=== PATIENT | female | born 1960 | race Caucasian/White ===

== ENCOUNTER → 2018-01-17 18:32 | Outpatient (CLI) | payer OTHER, SELFPAY ==
[2018-01-31 12:14] LABS: HPV APTIMA, High Risk Negative (Negative)
== END ==
PROVIDERS: Visit Provider Obstetrics & Gynecology
DX: Z12.4 Encounter for screening for malignant neoplasm of cervix (principal)
CPT/HCPCS: 88175; G0145

== ENCOUNTER → 2018-02-11 15:45 | Outpatient (CLI) | payer OTHER, SELFPAY ==
--- NOTE | 2018-02-11 15:47 | BI_ITS ---
MAMMOGRAPHY - BILATERAL SCREENING REASON FOR EXAM: Female, 57 years old. Routine annual screening examination. PERTINENT HISTORY: Non-contributory. TECHNIQUE: Digital bilateral breast victoriano (3D mammographic acquisition) in the CC and MLO projections. 2-D mediolateral oblique (MLO) and craniocaudad (CC) views of both breasts were obtained. CAD: Full Field Digital Mammography with Computer Added Detection was performed. COMPARISON: Comparison is made with prior ocular examination dated December 22, 2016. FINDINGS: Breast Composition: The breasts are extremely dense, which lowers the sensitivity of mammography. There are no dominant masses or suspicious calcifications. Stable appearance of the bilateral axillary lymph nodes. No other significant abnormalities are identified. There has been no significant change since the prior study. BI/SCREENING MAMM (CAD), BILAT IMPRESSION: Stable bilateral screening mammogram. Yearly follow-up mammogram recommended. (A) ASSESSMENT CATEGORY: BIRADS Category 2: Benign. A letter regarding these results will be sent to the patient by the facility within 30 days. Approximately 10% of breast cancers are not detected by mammography. A normal mammogram should not delay biopsy of a clinically suspicious abnormality. [id number] Electronically Signed: Sunny Farfan MD at 8:16 EDT Tel [phone], Service support ,
== END ==
PROVIDERS: PCP Family Medicine; Visit Provider Obstetrics & Gynecology
DX: Z12.31 Encounter for screening mammogram for malignant neoplasm of breast (principal)
CPT/HCPCS: 77063; 77067

== ENCOUNTER 2019-04-29 09:23 | Day surgery (SDC) | payer OTHER, SELFPAY ==
[2019-04-29] VITALS (8 sets, daily range): BP systolic 104–119; BP diastolic 54–75; PULSE 72–89; RESP 15–18; TEMP 35.9–36.8; O2SAT 95–100; BMI 20.9
[2019-04-29] MEDS: Lactated Ringers 1,000 ML 75 ML IV (09:54)
--- NOTE | 2019-04-29 10:36 | DCINST_ITS ---
You will use the following diet at home:: No restrictions Your food should be the consistency of: Regular Discharge Activity: Return to Normal Activity Additional Dressing/Incision Instructions:: do not get the bridge of your nose wet until the morning of your follow up appointment, then get it very wet in the shower. Allergies/Adverse Reactions: Allergies sulfamethoxazole [From Bactrim] Adverse Reaction (Verified 04/29/19 09:35) Nausea/Vom/Diarrhea trimethoprim [From Bactrim] Adverse Reaction (Verified 04/29/19 09:35) Nausea/Vom/Diarrhea Medications to take at Discharge Mesalamine [Lialda] 2.4 gm PO DAILY 09/13/17 Omeprazole [Prilosec] 20 mg PO DAILY 09/13/17 lorazepam 1 mg tablet 1 mg PO QHS PRN 01/17/18 ospemifene 60 mg tablet 60 mg PO DAILY #90 tab 03/19/19 Naproxen [Naprosyn] 250 mg PO DAILY PRN PRN 04/28/19 Acetaminophen/Codeine #3 [Tylenol#3] 1 tab PO Q6H PRN PRN 4 Days #10 tab 04/29/19 The following prescriptions were given: Acetaminophen/Codeine #3 [Tylenol#3] 1 tab PO Q6H PRN PRN 4 Days #10 tab PRN Reason: Pain Prescription Printed Primary Care Physician: Andry Hall III, MD [Primary Care Provider] - Test Results: Test results from this visit will be discussed in further detail at your follow- up appointment, if applicable.
--- NOTE | 2019-04-29 10:37 | OP.PCM_ITS ---
Problem List (1) Closed fracture nasal bone Status: Acute Report of Operation Date of Procedure: 04/29/19 Pre-Operative Diagnosis: closed fracture nasal bones Post-Operative Diagnosis: closed fracture nasal bones Surgery/Procedure Performed:: closed reduction nasal bones Type of Anesthesia:: General Description of Procedure: on the day of the procedure, after appropriate informed consent was obtained, the patient was brought to the operating room and placed in supine position on the operating table. she was placed under general endotracheal anesthesia by [facility] anesthesiologist. the endotracheal tube was secured, the eyes were taped. the table was rotated 90 degrees toward the anesthesiologist. the bilateral nasal cavities were decongested with oxymetazoline soaked pledgets. a boies elevator was used to lateralize the right deviated nasal bone which was still freely mobile. a merocel was placed high in the nasal vault to keep the bone lateralized. the left nasal bones were deviated laterally, however were not mobile due to a previous injury per the patient. steri strips and a dorsal nasal splint was placed. the patient was awoken from anesthesia and transferred to the PACU in stable condition.
[2019-04-29] MEDS: Oxymetazoline 0.05% 1 SPRAY SPRAY.BTL 15 SPRAY (10:40)
[2019-04-29] MEDS: Sugammadex Sodium 200 MG/2 ML VIAL IV (10:53)
== END 2019-04-29 13:07 | disposition home or self-care (01) ==
LOC: SDC 09:24 → AC 09:25
PROVIDERS: Family Provider Family Medicine; PCP Family Medicine; Referring Provider Otolaryngology; Visit Provider Otolaryngology
PROC: (CPT 21320; principal; 2019-04-29 10:55)
DX: S02.2XXA Fracture of nasal bones, initial encounter for closed fracture (principal); K21.9 Gastro-esophageal reflux disease without esophagitis; F41.9 Anxiety disorder, unspecified; Z78.0 Asymptomatic menopausal state; Z79.899 Other long term (current) drug therapy; Z85.828 Personal history of other malignant neoplasm of skin
CPT/HCPCS: 00160; 21320; J7120; J2310; J2405

== ENCOUNTER → 2019-06-09 16:06 | Outpatient (CLI) | payer OTHER, SELFPAY ==
[2019-06-09 15:19] VITALS: BMI 20.9
--- NOTE | 2019-06-09 16:09 | BI_ITS ---
MAMMOGRAPHY - BILATERAL SCREENING REASON FOR EXAM: Female, 58 years old. Routine annual screening examination. PERTINENT HISTORY: Non-contributory. Occasional left breast discharge. TECHNIQUE: Digital bilateral breast francisco (3D mammographic acquisition) in the CC and MLO projections. 2-D mediolateral oblique (MLO) and craniocaudad (CC) views of both breasts were obtained. CAD: Full Field Digital Mammography with Computer Added Detection was performed. COMPARISON: Comparison is made with prior study dated February 11, 2018 and December 22, 2016. FINDINGS: Breast Composition: The breasts are extremely dense, which lowers the sensitivity of mammography. I suspect a 1.8 cm x 2.6 cm well-defined nodule in the central upper aspect of the left breast. Correlation with ultrasound is recommended. Stable benign-appearing bilateral axillary lymph nodes. No other significant abnormalities are identified. There has been no significant change since the prior study. BI/SCREEN MAMM (CAD) W/FRANCISCO BILAT IMPRESSION: Findings suggest relatively well-defined nodular density in the central upper aspect of the left breast as described. Correlation with ultrasound is recommended. ASSESSMENT CATEGORY: BIRADS Category 0: Incomplete. Need additional imaging evaluation. A letter regarding these results will be sent to the patient by the facility within 30 days. Approximately 10% of breast cancers are not detected by mammography. A normal mammogram should not delay biopsy of a clinically suspicious abnormality. [id number] Electronically Signed: Sunny Farfan, at 10:44 EDT , Service support ,
== END ==
PROVIDERS: Family Provider Family Medicine; PCP Family Medicine; Referring Provider Obstetrics & Gynecology; Visit Provider Obstetrics & Gynecology
DX: Z12.31 Encounter for screening mammogram for malignant neoplasm of breast (principal)
CPT/HCPCS: 77063; 77067

== ENCOUNTER → 2019-06-17 14:58 | Outpatient (CLI) | payer OTHER, SELFPAY ==
[2019-06-09 15:19] VITALS: BMI 20.9
--- NOTE | 2019-06-17 15:01 | US_ITS ---
STUDY: ULTRASOUND BREAST - LEFT REASON FOR EXAM: Female, 58 years old. Abnormal screening mammogram. TECHNIQUE: Axial and longitudinal images of the LEFT breast were performed with a high resolution ultrasound transducer. COMPARISON: Comparison is made with prior mammogram dated June 09, 2019. FINDINGS: LEFT Breast: The superior half of the left breast was examined by ultrasound. There is a homogeneous fibroglandular tissue. No solid or cystic mass lesion is seen. US/Breast Limited Unilateral IMPRESSION: Unremarkable sonographic examination of the upper half of the left breast as described. Routine mammographic follow-up is recommended. ASSESSMENT CATEGORY: BIRADS Category 2: Benign. A letter regarding these results will be sent to the patient by the facility within 30 days. Electronically Signed: Sunny Farfan, at 15:58 EDT , Service support ,
== END ==
PROVIDERS: Family Provider Family Medicine; PCP Family Medicine; Referring Provider Obstetrics & Gynecology; Visit Provider Obstetrics & Gynecology
DX: R92.8 Other abnormal and inconclusive findings on diagnostic imaging of breast (principal)
CPT/HCPCS: 76642

== ENCOUNTER → 2019-08-19 15:52 | Outpatient (CLI) | payer OTHER, SELFPAY ==
[2019-06-09 15:19] VITALS: BMI 20.9
--- NOTE | 2019-08-19 15:57 | BD_ITS ---
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 COMPARISON: None. FINDINGS: Lumbar Spine (L1-L4): g/cm2 (1.062) / T-score (-1.0) / Z-score (-0.1) Findings are suggestive of normal bone density with a low fracture risk. Left Femur Total: g/cm2 (0.924) / T-score (-0.7) / Z-score (0.1) Left Femoral Neck: g/cm2 (0.958) / T-score (-0.6) / Z-score (0.5) Right Femur Total: g/cm2 (0.937) / T-score (-0.6) / Z-score (0.2) Right Femoral Neck: g/cm2 (0.946) / T-score (-0.7) / Z-score (0.4) BD/Dexa Bone Density Study IMPRESSION: The patient is considered normal as outlined below according to World [employer] Organization (WHO) criteria with a low fracture risk. Reference Information: The T-score is the number of standard deviations above or below the standard which is normal for young adults at their peak bone mineral density. The World Health Organization (WHO) interprets the T-scores as follows: Above -1 Normal bone density Between -1 and -2.5 Osteopenia Equal to / or below -2.5 Osteoporosis As a practical clinical guideline, osteopenia may be graded as follows: Mild -1 through -1.5 Moderate -1.6 through -2.0 Severe -2.1 through -2.4 The Z-score is the number of standard deviations above or below age-matched controls. A Z-score of less than -1.5 would be considered abnormal. References: 1. NIH Osteoporosis and Related Bone Diseases http://www.osteo.org 2. International Society for Clinical Densitometry http://www.iscd.org 3. National Osteoporosis Foundation http://www.nof.org Electronically Signed: Sunny Farfan, at 11:10 EST , Service support ,
== END ==
PROVIDERS: Family Provider Family Medicine; PCP Family Medicine; Referring Provider Obstetrics & Gynecology; Visit Provider Obstetrics & Gynecology
DX: Z78.0 Asymptomatic menopausal state (principal)
CPT/HCPCS: 77080

== ENCOUNTER → 2020-03-26 13:33 | Outpatient (CLI) | payer OTHER, SELFPAY ==
[2019-06-09 15:19] VITALS: BMI 20.9
== END ==
PROVIDERS: PCP Family Medicine; Referring Provider Family Medicine; Visit Provider Family Medicine
DX: R07.89 Other chest pain (principal); R07.2 Precordial pain
CPT/HCPCS: 93017; 93350; Q9957; A4216; C8928

== ENCOUNTER → 2020-05-17 | Outpatient (CLI) | payer OTHER, SELFPAY ==
[2019-06-09 15:19] VITALS: BMI 20.9
== END | disposition home or self-care (01) ==
LOC: MTDU 17:44
PROVIDERS: PCP Family Medicine; Referring Provider Family Medicine; Visit Provider Family Medicine
DX: Z11.59 Encounter for screening for other viral diseases (principal)
CPT/HCPCS: 87635; C9803; U0003

== ENCOUNTER → 2020-08-31 16:18 | Outpatient (CLI) | payer OTHER, SELFPAY ==
[2020-07-22 16:35] VITALS: BMI 23.2
--- NOTE | 2020-08-31 16:19 | BI_ITS ---
MAMMOGRAPHY - BILATERAL SCREENING REASON FOR EXAM: Female, 59 years old. Routine annual screening examination. PERTINENT HISTORY: Non-contributory. TECHNIQUE: Digital bilateral breast francisco (3D mammographic acquisition) in the CC and MLO projections. 2-D mediolateral oblique (MLO) and craniocaudad (CC) views of both breasts were obtained. CAD: Full Field Digital Mammography with Computer Added Detection was performed. COMPARISON: Comparison is made with prior study 06/09/2019 and 02/11/2018. FINDINGS: Breast Composition: The breasts are extremely dense, which lowers the sensitivity of mammography. There are no dominant masses or suspicious calcifications. No other significant abnormalities are identified. There has been no significant change since the prior study. BI/SCREEN MAMM (CAD) W/FRANCISCO BILAT IMPRESSION: Stable bilateral screening mammogram. Yearly follow-up mammogram recommended. (A) ASSESSMENT CATEGORY: BIRADS Category 1: Negative. A letter regarding these results will be sent to the patient by the facility within 30 days. Approximately 10% of breast cancers are not detected by mammography. A normal mammogram should not delay biopsy of a clinically suspicious abnormality. [id number] Electronically Signed: Sunny Farfan, at 8:39 EST , Service support ,
== END ==
PROVIDERS: PCP Family Medicine; Referring Provider Obstetrics & Gynecology; Visit Provider Obstetrics & Gynecology
DX: Z12.31 Encounter for screening mammogram for malignant neoplasm of breast (principal)
CPT/HCPCS: 77063; 77067

== ENCOUNTER → 2021-05-18 10:06 | Outpatient (CLI) | payer OTHER, SELFPAY ==
[2021-05-18 12:39] LABS: Absolute Lymphocyte Count 1.26 X10^3/uL (0.83-4.51); Absolute Neutrophil Count 1.6 X10^3/uL (2.0-7.7); Basophil# 0.03 X10^3/uL; Basophil% 0.9 % (0-1); Hematocrit 38.1 % (37-47); Hemoglobin 12.5 g/dL (12.0-15.0); Lymphocyte # 1.26 X10^3/ul (0.83-4.51); Lymphocyte % 37.5 % (19-41); Mean Corp Hgb Conc 32.8 g/dL (32-36); Mean Corpuscular Hgb 30.3 pg (27.0-32.0); Mean Corpuscular Volume 92.3 fL (81-99); Mean Platelet Vol. 10.5 fl (6.2-12.0); Monocyte# 0.42 X10^3/uL; Monocyte% 12.5 % (0-10); NRBC Flagged by Analyzer 0 % (0-5); Neutrophil # 1.64 X10^3/uL (2.7-7.7); Neutrophil % 48.8 % (47-70); Platelet Count 266 K/mm3 (150-450); RBC Distribution Width CV 12.4 % (11.6-14.6); RBC Distribution Width SD 42.1 fl (35.1-43.9); Red Blood Count 4.13 M/mm3 (4.2-5.4); White Blood Count 3.4 K/mm3 (4.4-11.0)
[2021-05-18 13:05] LABS: ALB/GLOB Ratio 0.8 RATIO (0.9-2.4); AST(SGOT) 14 U/L (15-37); Alanine Aminotransfer ALT/SGPT 16 U/L (13-56); Albumin, Serum 3.6 g/dL (3.2-5.0); Alkaline Phosphatase 66 U/L (45-117); Anion Gap 4 (5-15); BUN 10 mg/dL (7-18); BUN/Creat Ratio 11.8 RATIO (10-20); Calcium,Total 9.2 mg/dL (8.5-10.1); Chloride 106 mmol/L (98-107); Cholesterol 239 mg/dL (200); Creatinine, Serum 0.85 mg/dL (0.55-1.02); EST Glomerular Filtration Rate 73 mL/min (>60); Est Glom Filt Rate - Afr Amer 88 mL/min (>60); Globulin 4.6 g/dL (2.2-4.2); Glucose 105 mg/dL (74-106); High Density Lipoprotein 84 mg/dL; Potassium 4.2 mmol/L (3.5-5.1); Protein, Total 8.2 g/dL (6.4-8.2); Sodium Level 140 mmol/L (136-145); T4 Free Direct 1.07 ng/dL (0.76-1.46); Thyroid Stim Hormone (TSH) 1.39 uIU/mL (0.358-3.74); Triglycerides 68 mg/dL; Very Low Density Lipoprotein 14 mg/dL (5-40)
== END ==
PROVIDERS: PCP Internal Medicine; Referring Provider Internal Medicine; Visit Provider Internal Medicine
DX: K52.9 Noninfective gastroenteritis and colitis, unspecified (principal); E78.5 Hyperlipidemia, unspecified; Z13.29 Encounter for screening for other suspected endocrine disorder
CPT/HCPCS: 36415; 80053; 80061; 84439; 84443; 85025

== ENCOUNTER → 2021-06-28 14:07 | Outpatient (CLI) | payer OTHER, SELFPAY ==
--- NOTE | 2021-06-28 14:40 | CT_ITS ---
STUDY: LOW DOSE CT LUNG CANCER SCREENING REASON FOR EXAM: Female, 60 years old. Lung cancer screening -- 31 pk yr hx; current smoker; asymptomatic RADIATION DOSAGE (If Supplied By Facility): CTDIvol = ( 2.01 ) mGy, DLP = ( 63.69 ) mGycm TECHNIQUE: No contrast was administered. Low dose technique was utilized (average mAS-38 and kVp 120). 1.25 mm axial source images with a slice interval of 1.25-mm were reconstructed in lung windows. 2.5 mm axial source images with a slice interval of 2.5-mm were reconstructed in lung windows. 5.0 mm axial source images with a slice interval of 5.0-mm were reconstructed in soft tissue windows. Nodule measured using lung windows on PACS and/or independent workstation with automated measurement of minimum and maximum diameter. Nodule measurement reported as average diameter rounded to the nearest whole number. Growth is defined as an increase ins size of greater than 1.5 mm. COMPARISON: None. NODULES: Calcified granuloma along the anterior medial aspect of the left upper lobe as seen on axial image #78. Emphysema: Emphysematous changes. There is evidence of scarring at the right lung apex. Endobronchial lesion: Unremarkable Aorta: Unremarkable Coronary arteries: Unremarkable Heart: Unremarkable Pulmonary artery: Unremarkable Mediastinal nodes: Calcified lymph nodes in the aortopulmonary window and left hilar region. Other chest and abdominal findings: CT/Low Dose CT Lung Screening IMPRESSION: Lung-RADS category 2 - Continue annual screening with LDCT in 12 months. IMPORTANT NOTES FOR USE: ACR Lung-RADS Version 1.1 Assessment Categories Release Date: 2018 Category: Coded 0-4 bases on nodule(s) with highest degree of suspicion. Negative screen is defined as categories 1 and 2; a positive screen is defined as categories 3 and 4. Category 3 and 4A nodules that are unchanged on interval CT should be coded as category 2, and individuals returned to screening in 12 months. Category 4X: Category 3 or 4 nodules with additional imaging findings that increase the suspicion of lung cancer, such as spiculation, GGN that doubles in size in 1 year, enlarged lymph notes, etc. Category Modifiers: S (significant finding unrelated to lung cancer) Electronically Signed: Sunny Farfan MD at 15:09 EST , Service support ,
== END ==
PROVIDERS: PCP Internal Medicine; Referring Provider Nurse Practitioner Family; Visit Provider Nurse Practitioner Family
DX: Z12.2 Encounter for screening for malignant neoplasm of respiratory organs (principal); Z87.891 Personal history of nicotine dependence
CPT/HCPCS: 71271

== ENCOUNTER → 2021-07-12 13:35 | Outpatient (CLI) | payer OTHER, SELFPAY ==
[2021-07-14 08:43] LABS: HSV 2 IgG < 0.91 index (0.00-0.90)
== END ==
PROVIDERS: PCP Internal Medicine; Referring Provider Obstetrics & Gynecology; Visit Provider Obstetrics & Gynecology
DX: N89.8 Other specified noninflammatory disorders of vagina (principal)
CPT/HCPCS: 36415; 86695; 86696

== ENCOUNTER 2021-10-20 16:04 | Outpatient (CLI) | payer OTHER, SELFPAY ==
--- NOTE | 2021-10-20 16:05 | BI_ITS ---
MAMMOGRAPHY - BILATERAL SCREENING REASON FOR EXAM: Female, 60 years old. Routine annual screening examination. PERTINENT HISTORY: Non-contributory. TECHNIQUE: Digital bilateral breast francisco (3D mammographic acquisition) in the CC and MLO projections. 2-D mediolateral oblique (MLO) and craniocaudad (CC) views of both breasts were obtained. CAD: Full Field Digital Mammography with Computer Added Detection was performed. COMPARISON: Comparison is made with prior study dated 08/31/2020 and 06/09/2019. FINDINGS: Breast Composition: The breasts are extremely dense, which lowers the sensitivity of mammography. There are no dominant masses or suspicious calcifications. No other significant abnormalities are identified. There has been no significant change since the prior study. BI/SCRN MAMM (CAD)W/FRANCISCO BILAT IMPRESSION: Stable bilateral screening mammogram. Yearly follow-up mammogram recommended. (A) ASSESSMENT CATEGORY: BIRADS Category 1: Negative. A letter regarding these results will be sent to the patient by the facility within 30 days. Approximately 10% of breast cancers are not detected by mammography. A normal mammogram should not delay biopsy of a clinically suspicious abnormality. [id number] Electronically Signed: Sunny Farfan MD at 9:00 EST ,
[2021-10-26 13:23] LABS: HPV APTIMA, High Risk Negative (Negative)
== END 2021-10-20 23:59 | disposition home or self-care (01) ==
PROVIDERS: PCP Internal Medicine; Visit Provider Obstetrics & Gynecology
DX: Z12.31 Encounter for screening mammogram for malignant neoplasm of breast (principal); Z12.4 Encounter for screening for malignant neoplasm of cervix
CPT/HCPCS: 77063; 77067; 87624; 88175; G0145

== ENCOUNTER → 2022-02-08 | Outpatient (CLI) | payer OTHER, SELFPAY ==
[2022-02-08 16:31] LABS: Absolute Lymphocyte Count 1.43 X10^3/uL (0.83-4.51); Absolute Neutrophil Count 2.6 X10^3/uL (2.0-7.7); Basophil# 0.04 X10^3/uL; Basophil% 0.9 % (0-1); Eosinophil# 0.01 X10^3/uL; Eosinophils% 0.2 % (0-5); Hemoglobin 11.2 g/dL (12.0-15.0); Lymphocyte # 1.43 X10^3/ul (0.83-4.51); Lymphocyte % 32.1 % (19-41); Mean Corp Hgb Conc 32.9 g/dL (32-36); Mean Corpuscular Hgb 29.6 pg (27.0-32.0); Mean Corpuscular Volume 89.9 fL (81-99); Mean Platelet Vol. 10.4 fl (6.2-12.0); Monocyte# 0.36 X10^3/uL; Monocyte% 8.1 % (0-10); NRBC Flagged by Analyzer 0 % (0-5); Neutrophil % 58.5 % (47-70); Platelet Count 229 K/mm3 (150-450); RBC Distribution Width CV 12.3 % (11.6-14.6); RBC Distribution Width SD 40.1 fl (35.1-43.9); Red Blood Count 3.78 M/mm3 (4.2-5.4); White Blood Count 4.5 K/mm3 (4.4-11.0)
[2022-02-08 16:57] LABS: Ferritin 121 ng/mL (8-252); Thyroid Stim Hormone (TSH) 0.86 uIU/mL (0.358-3.74)
== END | disposition home or self-care (01) ==
LOC: BIMLAB 15:52
PROVIDERS: PCP Internal Medicine; Visit Provider Physician Assistant
DX: L30.9 Dermatitis, unspecified (principal); L82.1 Other seborrheic keratosis; L64.8 Other androgenic alopecia
CPT/HCPCS: 36415; 82728; 84443; 85025; 86038

== ENCOUNTER → 2022-03-07 | Outpatient (CLI) | payer OTHER, SELFPAY ==
--- NOTE | 2022-03-07 15:54 | EKG12_ITS ---
Test Reason : CP Blood Pressure : / mmHG Vent. Rate : 086 BPM Atrial Rate : 086 BPM P-R Int : 128 ms QRS Dur : 078 ms QT Int : 364 ms P-R-T Axes : 057 050 042 degrees QTc Int : 435 ms Normal sinus rhythm Normal ECG Confirmed by MARIA D TITUS, ROGER ([id number]), online editor CESAR RASHID ([id number]) on 03/08/2022 9:52:00 AM Referred By: Dianna Schultz Confirmed By:ROGER KILLIAN MD
== END | disposition home or self-care (01) ==
LOC: PSN 15:52
PROVIDERS: PCP Internal Medicine; Referring Provider Internal Medicine; Visit Provider Internal Medicine
DX: R07.9 Chest pain, unspecified (principal)
CPT/HCPCS: 93005

== ENCOUNTER 2022-07-07 19:45 | Emergency (ER) | payer OTHER, SELFPAY ==
[2022-07-07 19:47] VITALS: BP 116/73; PULSE 108; RESP 18; TEMP 36.6; O2SAT 99; BMI 22.3
--- NOTE | 2022-07-07 20:06 | CT_ITS ---
INDICATION: Midabdominal pain for one week. Vomiting for one day. EXAMINATION: CT ABDOMEN AND PELVIS WITH CONTRAST - CT Abdomen And Pelvis W/ Contrast Injection TECHNIQUE: Helically acquired images were obtained of the abdomen and pelvis following IV contrast. A radiation dose optimization technique was used for this scan. IV Contrast dosage and agent: 75 mL of Isovue 370 Oral contrast: None. COMPARISON: None. FINDINGS: LOWER CHEST: Lung bases are clear. No cardiomegaly or pericardial effusion. LIVER: Homogeneous. No focal mass. GALLBLADDER AND BILIARY TREE: No calcified gallstones. No gallbladder distension or wall edema. No intra- or extrahepatic biliary ductal dilation. PANCREAS: No focal cystic or solid mass. SPLEEN: Normal size without focal cystic or solid mass. ADRENAL GLANDS: No nodules. KIDNEYS AND URETERS: Normal renal size and position. No hydronephrosis. Abnormal visualized ureters. PERITONEUM: No ascites or free air. No other fluid collection. BOWEL: Small hiatal hernia. The stomach is otherwise unremarkable. Normal small intestine. Wall thickening and loss of normal haustra in the distal transverse and descending colon. Question colitis. Normal appendix. LYMPH NODES: No enlarged mesenteric or retroperitoneal lymph nodes. VESSELS: Aorta is non-dilated. URINARY BLADDER: Unremarkable. REPRODUCTIVE ORGANS: Normal uterus and adnexa. No pelvic lymphadenopathy. No free air or free fluid is seen within the peritoneal cavity ABDOMINAL WALL: No discrete abdominal or pelvic wall hernia. BONES: No lytic or blastic abnormality. CT/Abdomen/Pelvis W IV Cont ONLY IMPRESSION: Question mild left-sided colitis. The study is otherwise grossly normal. Electronically Signed: Damián Mckenzie DO at 21:31 EST ,
--- NOTE | 2022-07-07 20:10 | EX.ED.DYSGE1 ---
HPI <JON Hernandez - Last Filed: 07/07/22 20:58> History of Present Illness Chief Complaint: Abd Pain Narrative Narrative: 61-year-old female with history of Crohn's disease, acid reflux presents to the emergency department with 1 week of intermittent upper abdominal pain, intermittent nausea and vomiting last 48 hours. Patient states that this pain starts when she gets up in the morning, she usually has a bowel movement and feels better however over the last week it has not. Patient thought she was feeling better today however had an episode of vomitus after eating. She denies any fevers however subjective chills. She denies any blood in her stool or vomit. Patient does not drink alcohol. Patient's last Crohn's flareup was multiple years ago. Patient last time she was on steroids was multiple years ago. Patient is here for evaluation [facility] <JON Hernandez - Last Filed: 07/07/22 20:58> [facility] Medical History (Updated 07/07/22 @ 21:[address] Yeny Johnson MD) Acute bronchitis, unspecified Acute ethmoidal sinusitis, unspecified Allergies Anal or rectal pain Anxiety Bone fracture Chest pain Colitis Encounter for screening for malignant neoplasm of lung in current smoker with 30 pack year history or greater GERD (gastroesophageal reflux disease) History of skin cancer Hyperlipidemia Preventative health care Screening for thyroid disorder Smoking greater than 30 pack years Tobacco use disorder, continuous Home Medications mesalamine 1.2 gram tablet,delayed release 2.4 g PO DAILY 09/13/17 [History Last Taken Unknown] mometasone 0.1 % topical ointment 1 applic topical DAILY 4 weeks #45 grams 07/12/21 [Rx Last Taken Unknown] lidocaine 4 % topical cream 1 applic topical BID PRN pain #30 grams 10/20/21 [Rx Last Taken Unknown] lorazepam 1 mg tablet 1 mg PO TID PRN anxiety #20 tabs 10/20/21 [Rx Last Taken Unknown] naproxen 250 mg tablet 250 mg PO BID PRN 04/13/22 [History Last Taken Unknown] omeprazole 40 mg capsule,delayed release 40 mg PO DAILY 04/13/22 [History Last Taken Unknown] ospemifene 60 mg tablet 60 mg PO DAILY #90 tabs 05/05/22 [Rx Last Taken Unknown] ciprofloxacin HCl 500 mg tablet (Cipro) 500 mg PO BID #20 tabs 07/07/22 [Rx Last Taken Unknown] metronidazole 500 mg tablet 500 mg PO Q8H 7 days #21 tabs 07/07/22 [Rx Last Taken Unknown] ondansetron 4 mg disintegrating tablet 4 mg PO Q8H PRN nausea and vomiting #10 tabs 07/07/22 [Rx Last Taken Unknown] Allergy/AdvReac Type Severity Reaction Status Date / Time sulfamethoxazole AdvReac Nausea/Vom/ Verified 07/07/22 19:54 [From Bactrim] Diarrhea trimethoprim [From Bactrim] AdvReac Nausea/Vom/ Verified 07/07/22 19:54 Diarrhea Family History Mother Cancer lung- nonsmoker Brother Cancer lung- smoker Alcoholism /alcohol abuse Grandmother Heart disease Aunt Heart disease Surgical History History of ear surgery History of Mohs micrographic surgery for skin cancer Social History Smoking Status: Current some day smoker tobacco type: cigarettes Tobacco: How many years used: 30 how long ago did patient quit smoking: Patient quit smoking in 2007 but does smoke on rare occasions second hand exposure: Yes quit status: considering quitting counseling given: provider counseling alcohol intake: current details: social substance use type: does not use what type of physical activity do you participate in: walking seatbelt use: always do you feel safe at home: Yes additional social history: Trisha Madrigal Patient works at [employer] DOES TAKE ASPIRIN DOES TAKE IBUPROFEN ROS <JON Hernandez - Last Filed: 07/07/22 20:58> [facility] ROS Narrative Constitutional: Negative for fever, chills, weight loss, weakness Eyes: Negative for vision loss, vision change, double vision ENT: Negative for any sore throat, ear pain, congestion Cardiovascular: Negative for any chest pain, tightness, palpitations Respiratory: Negative for any cough, sputum production, hemoptysis, dyspnea, dyspnea on exertion, orthopnea Gastrointestinal: Negative for any diarrhea, constipation, blood in stool, blood in vomit. Positive for abdominal pain, nausea and vomiting : Negative for any urinary frequency, dysuria, retention, blood in urine Muscle skeletal: Negative for any muscle joint pain, stiffness, myalgias, arthralgias, neck pain, back pain Neurological: Negative for any headache, syncope, numbness or tingling, dizziness Skin: Negative for any rashes, lumps, itching, abrasions, lacerations Psychiatric: Negative for any depression, anxiety, stress, suicidal ideation, homicidal ideation Hematologic: Negative for any easy bruising, excessive bruising, easy bleeding Allergies: Negative for any eczema, hives, rash EXAM <JON Hernandez - Last Filed: 07/07/22 20:58> Physical Exam Narrative Exam Narrative: Vital signs reviewed. HEET: Head normocephalic atraumatic, TMs clear bilaterally. Posterior pharynx is clear, moist mucous membranes. Nares clear bilaterally. Neck: Supple with no lymphadenopathy or tenderness. No signs of meningismus, negative jolt sign. Cardiac: Regular rate and rhythm no murmurs gallops or rubs, equal peripheral pulses bilaterally. Respiratory: Lungs clear to auscultation bilaterally. No chest tenderness. Abdomen: Soft, nontender, nondistended. No abdominal bruit or pulsatile masses. No hepatosplenomegaly, negative Ivan sign. Active bowel sounds in all quadrants. No peritoneal signs. Extremities: No peripheral edema, no signs of gross trauma or deformity. Active full range of motion of all extremities. Neuro: Cranial nerves II through XII intact, no focal neurological deficits. Skin: Clean dry and intact with no rash, purpura, petechiae, vesicles or pustules. Backs/flank: No CVA tenderness, no midline spinal tenderness, no deformity. Psych: Normal mood and affect. No SI, HI or acute psychosis. Const Vital Signs: 07/07/22 19:47 Temperature 97.8 F Temperature Source Temporal Pulse Rate 108 H Respiratory Rate 18 Blood Pressure 116/73 Blood Pressure Mean 87 Pulse Ox 99 Oxygen Delivery Method Room Air <Dr. Yeny Johnson MD - Last Filed: 07/07/22 21:48> Physical Exam Const Vital Signs: 07/07/22 19:47 Temperature 97.8 F Temperature Source Temporal Pulse Rate 108 H Respiratory Rate 18 Blood Pressure 116/73 Blood Pressure Mean 87 Pulse Ox 99 Oxygen Delivery Method Room Air MDM <JON Hernandez - Last Filed: 07/07/22 20:58> [facility] Lab Data Labs: Laboratory Results - last 24 hr 07/07/22 07/07/22 07/07/22 20:16 20:16 21:03 WBC 5.7 RBC 4.33 Hgb 13.0 Hct 38.9 MCV 89.8 MCH 30.0 MCHC 33.4 RDW Std Deviation 40.4 RDW Coeff of Victoriano 12.3 Plt Count 293 MPV 9.6 Immature Gran % (Auto) 0.200 Neut % (Auto) 65.0 Lymph % (Auto) 23.5 [place] % (Auto) 10.6 H Eos % (Auto) 0.2 Baso % (Auto) 0.5 Absolute Neuts (auto) 3.7 Absolute Lymphs (auto) 1.33 Nucleated RBC % 0 Sodium 141 Potassium 3.3 L Chloride 106 Carbon Dioxide 28.0 Anion Gap 7 BUN 11 Creatinine 0.91 Estim Creat Clear Calc 50.23 Est GFR (MDRD) Af Amer 81 Est GFR (MDRD) Non-Af 67 BUN/Creatinine Ratio 12.1 Glucose 118 H Calcium 9.2 Total Bilirubin 0.40 AST 22 ALT 26 Alkaline Phosphatase 68 Total Protein 8.2 Albumin 3.7 Globulin 4.5 H Albumin/Globulin Ratio 0.8 L Lipase 113 Urine Color Straw Urine Clarity Clear Urine pH 6.5 Ur Specific [place] 1.005 Urine Protein Negative Urine Glucose (UA) Normal Urine Ketones Negative Urine Occult Blood Negative Urine Nitrite Negative Urine Bilirubin Negative Urine Urobilinogen Normal Ur Leukocyte Esterase 100 H Urine RBC 0 SEEN Urine WBC 0-5 SEEN Ur Squamous Epith Cells 0 SEEN Urine Bacteria 0 SEEN Urine Mucus 0 SEEN Radiography Diagnostic Testing: Clinical Impression(s) from Imaging Studies Abdomen/Pelvis CT 07/07/22 20:06 IMPRESSION: Question mild left-sided colitis. The study is otherwise grossly normal. Electronically Signed: Damián Mckenzie DO at 21:31 EST Reading Location ID and State: [address] [place] [address] Tel [phone], Service support , <Dr. Yeny Johnson MD - Last Filed: 07/07/22 21:48> [facility] Lab Data Labs: Laboratory Results - last 24 hr 07/07/22 07/07/22 07/07/22 20:16 20:16 21:03 WBC 5.7 RBC 4.33 Hgb 13.0 Hct 38.9 MCV 89.8 MCH 30.0 MCHC 33.4 RDW Std Deviation 40.4 RDW Coeff of Victoriano 12.3 Plt Count 293 MPV 9.6 Immature Gran % (Auto) 0.200 Neut % (Auto) 65.0 Lymph % (Auto) 23.5 [place] % (Auto) 10.6 H Eos % (Auto) 0.2 Baso % (Auto) 0.5 Absolute Neuts (auto) 3.7 Absolute Lymphs (auto) 1.33 Nucleated RBC % 0 Sodium 141 Potassium 3.3 L Chloride 106 Carbon Dioxide 28.0 Anion Gap 7 BUN 11 Creatinine 0.91 Estim Creat Clear Calc 50.23 Est GFR (MDRD) Af Amer 81 Est GFR (MDRD) Non-Af 67 BUN/Creatinine Ratio 12.1 Glucose 118 H Calcium 9.2 Total Bilirubin 0.40 AST 22 ALT 26 Alkaline Phosphatase 68 Total Protein 8.2 Albumin 3.7 Globulin 4.5 H Albumin/Globulin Ratio 0.8 L Lipase 113 Urine Color Straw Urine Clarity Clear Urine pH 6.5 Ur Specific [place] 1.005 Urine Protein Negative Urine Glucose (UA) Normal Urine Ketones Negative Urine Occult Blood Negative Urine Nitrite Negative Urine Bilirubin Negative Urine Urobilinogen Normal Ur Leukocyte Esterase 100 H Urine RBC 0 SEEN Urine WBC 0-5 SEEN Ur Squamous Epith Cells 0 SEEN Urine Bacteria 0 SEEN Urine Mucus 0 SEEN Radiography Diagnostic Testing: Clinical Impression(s) from Imaging Studies Abdomen/Pelvis CT 07/07/22 20:06 IMPRESSION: Question mild left-sided colitis. The study is otherwise grossly normal. Electronically Signed: Damián MckenzieDO at 21:31 EST Reading Location ID and State: [address] [place] [address] Tel [phone], Service support , Treatment and Re-Evaluation Narrative: Patient seen and evaluated with YASEMIN. I personally interviewed and examined the patient. I was involved in all aspects of patient's orders, interpretation of results, and treatment. Patient presents with pressure in her epigastric region over the past week. She has noted a change in her stools. She is a history of colitis and was concerned for this. She has had nausea with vomiting the past 2 days. Patient sitting upright in bed no acute distress. Nontoxic-appearing. Head and neck examination unremarkable. Heart is regular rate and rhythm. Lung sounds are clear. Abdomen is soft with focal tenderness in the epigastrium. No guarding or rebound. Hypoactive but present bowel sounds are noted. CBC and chemistry studies largely unremarkable. Potassium is slightly low at 3.3. Urinalysis reveals no acute infection. CT scan of the abdomen pelvis reveals questionable mild left-sided colitis. With the patient's history and current symptomatology I do feel she should be treated with a course of antibiotics. I will write her for Cipro and Flagyl along with Zofran to help control nausea. She will follow-up with her GI doctor, Dr. Castillo. Return instructions are given. Discharge Plan Triage Chief Complaint: Abd Pain ED Midlevel Provider: Chadd Earl ED Provider: Yeny Johnson Dx/Rx/DC Orders Clinical Impression: Colitis Instructions: ED Understanding Colitis Prescriptions: New ondansetron 4 mg tablet,disintegrating 4 mg PO Q8H PRN (Reason: nausea and vomiting) Qty: 10 0RF ciprofloxacin HCl [Cipro] 500 mg tablet 500 mg PO BID Qty: 20 0RF metronidazole 500 mg tablet 500 mg PO Q8H 7 Days Qty: 21 0RF No Action lorazepam 1 mg tablet 1 mg PO TID PRN (Reason: anxiety) Qty: 20 0RF lidocaine 4 % cream 1 applic topical BID PRN (Reason: pain) Qty: 30 3RF mometasone 0.1 % ointment 1 applic topical DAILY 28 Days Qty: 45 12RF Rx Instructions: use nightly x 4 weeks and then 1-2x weekly. omeprazole 40 mg capsule,delayed release(DR/EC) 40 mg PO DAILY naproxen 250 mg tablet 250 mg PO BID PRN mesalamine 1.2 GM tablet 2.4 g PO DAILY ospemifene 60 mg tablet 60 mg PO DAILY Qty: 90 0RF Primary Care Provider: Dianna Schultz Referrals: Dianna Schultz MD [Primary Care Provider] - Jose Castillo MD [Non-Staff] - 10-14 Days if not better Disposition Disposition: Home, Self Care
[2022-07-07] MEDS: 0.9% Normal Saline 1,000 ML 1000 ML IV (20:20)
[2022-07-07 20:23] LABS: Absolute Lymphocyte Count 1.33 X10^3/uL (0.83-4.51); Absolute Neutrophil Count 3.7 X10^3/uL (2.0-7.7); Basophil# 0.03 X10^3/uL; Basophil% 0.5 % (0-1); Eosinophil# 0.01 X10^3/uL; Eosinophils% 0.2 % (0-5); Hematocrit 38.9 % (37-47); Lymphocyte # 1.33 X10^3/ul (0.83-4.51); Lymphocyte % 23.5 % (19-41); Mean Corp Hgb Conc 33.4 g/dL (32-36); Mean Corpuscular Volume 89.8 fL (81-99); Mean Platelet Vol. 9.6 fl (6.2-12.0); Monocyte% 10.6 % (0-10); NRBC Flagged by Analyzer 0 % (0-5); Neutrophil # 3.68 X10^3/uL (2.7-7.7); Platelet Count 293 K/mm3 (150-450); RBC Distribution Width CV 12.3 % (11.6-14.6); RBC Distribution Width SD 40.4 fl (35.1-43.9); Red Blood Count 4.33 M/mm3 (4.2-5.4); White Blood Count 5.7 K/mm3 (4.4-11.0)
[2022-07-07] MEDS: Ondansetron 4 MG/2 ML Vial IV (20:32)
[2022-07-07 20:39] LABS: ALB/GLOB Ratio 0.8 RATIO (0.9-2.4); AST(SGOT) 22 U/L (15-37); Alanine Aminotransfer ALT/SGPT 26 U/L (13-56); Albumin, Serum 3.7 g/dL (3.2-5.0); Alkaline Phosphatase 68 U/L (45-117); Anion Gap 7 (5-15); BUN 11 mg/dL (7-18); BUN/Creat Ratio 12.1 RATIO (10-20); Calcium,Total 9.2 mg/dL (8.5-10.1); Chloride 106 mmol/L (98-107); Creatinine, Serum 0.91 mg/dL (0.55-1.02); EST Glomerular Filtration Rate 67 mL/min (>60); Est Glom Filt Rate - Afr Amer 81 mL/min (>60); Estimated Creatinine Clearance 50.23 ml/min; Globulin 4.5 g/dL (2.2-4.2); Glucose 118 mg/dL (74-106); Lipase 113 U/L (73-393); Potassium 3.3 mmol/L (3.5-5.1); Protein, Total 8.2 g/dL (6.4-8.2); Sodium Level 141 mmol/L (136-145)
[2022-07-07 21:14] LABS: Bacteria 0 SEEN /hpf (None Seen); Mucous, Urine 0 SEEN /hpf (<or=2+); Red Blood Cells-Urine 0 SEEN /hpf (0-5); Squamous Epithelial Cells - UA 0 SEEN /hpf (5-10)
[2022-07-07 21:16] LABS: Color, Urine Straw (Yellow); Glucose, Dipstick Normal (Normal); Ketone-Dipstick Negative (Negative); Leukocyte Esterase-Dipstick 100 /ul (Negative); Nitrite-Dipstick Negative (Negative); Occult Blood-Urine Negative /ul (Negative); Protein-Dipstick Negative (Negative); Specific Gravity, Urine 1.005 (1.002-1.030); Urine Bilirubin Dipstick Negative (Negative); Urine Clarity Clear (Clear); Urine Urobilinogen Normal (Normal); Urine pH 6.5 (5.0 - 8.0)
[2022-07-07 21:23] LABS: White Blood Cells 0-5 SEEN /hpf (0-5)
[2022-07-07 21:51] VITALS: BP 107/46; PULSE 86; PULSE 92; RESP 18; O2SAT 97; O2SAT 98
[2022-07-07] MEDS: metroNIDAZOLE 500 MG Tablet PO (21:58)
[2022-07-07] MEDS: Ciprofloxacin 500 MG Tablet PO (21:58)
== END 2022-07-07 22:04 | disposition home or self-care (01) ==
PROVIDERS: Nurse Practitioner; Emergency Provider Emergency Medicine; PCP Internal Medicine; Visit Provider Emergency Medicine
DX: K52.9 Noninfective gastroenteritis and colitis, unspecified (principal); F41.9 Anxiety disorder, unspecified; K21.9 Gastro-esophageal reflux disease without esophagitis; E78.5 Hyperlipidemia, unspecified; F17.210 Nicotine dependence, cigarettes, uncomplicated; Z79.899 Other long term (current) drug therapy
CPT/HCPCS: 74177; 80053; 81001; 83690; 85025; 96361; 96374; 99284; J7030; Q9967; A4216; J2405

== ENCOUNTER 2022-07-13 11:49 | Emergency (ER) | payer OTHER, SELFPAY ==
[2022-07-13 11:51] VITALS: BP 138/65; PULSE 120; RESP 18; TEMP 36.2; O2SAT 98; BMI 21.1
--- NOTE | 2022-07-13 12:12 | ED.VIS.GI ---
HPI HPI - GI History of Present Illness Chief Complaint: Abd Pain Narrative Narrative: 61-year-old female presenting with epigastric pain. She states has had the symptoms for a couple weeks now. She states she saw Dr. Castillo a few weeks ago and had a normal upper endoscopy. She states she was seen here last Sunday and had blood work which was fairly normal. Her CT scan of the abdomen pelvis showed colitis. She states she does have a history of colitis. She states that some physicians have told her she has ulcerative colitis and others have told her that she does not. She states that after going home she has had decreased p.o. intake due to epigastric pain. She states she has been able to eat over the weekend and states its been diminished but also reports that she has had a couple of sandwiches a day as well as been able to drink water. She does intermittently feel like she is going to vomit. Today she ate a banana and vomited this up but then was able to get it down after trying again. She does have Zofran leftover from her previous visit but has not been taking it because she states its been more of a pain problems and her nausea problem. She has not had a fever since her last visit. No chills or body aches. She had a negative home COVID test. She states her urine is dark but she is not having dysuria or hematuria. She states that she has a dry mouth and she feels as if she is listless. [facility] Medical History Acute bronchitis, unspecified Acute ethmoidal sinusitis, unspecified Allergies Anal or rectal pain Anxiety Bone fracture Chest pain Colitis Encounter for screening for malignant neoplasm of lung in current smoker with 30 pack year history or greater GERD (gastroesophageal reflux disease) History of skin cancer Hyperlipidemia Preventative health care Screening for thyroid disorder Smoking greater than 30 pack years Tobacco use disorder, continuous Home Medications mesalamine 1.2 gram tablet,delayed release 2.4 g PO DAILY 09/13/17 [History Last Taken Unknown] mometasone 0.1 % topical ointment 1 applic topical DAILY 4 weeks #45 grams 07/12/21 [Rx Last Taken Unknown] lidocaine 4 % topical cream 1 applic topical BID PRN pain #30 grams 10/20/21 [Rx Last Taken Unknown] lorazepam 1 mg tablet 1 mg PO TID PRN anxiety #20 tabs 10/20/21 [Rx Last Taken Unknown] naproxen 250 mg tablet 250 mg PO BID PRN 04/13/22 [History Last Taken Unknown] omeprazole 40 mg capsule,delayed release 40 mg PO DAILY 04/13/22 [History Last Taken Unknown] ospemifene 60 mg tablet 60 mg PO DAILY #90 tabs 05/05/22 [Rx Last Taken Unknown] ciprofloxacin HCl 500 mg tablet (Cipro) 500 mg PO BID #20 tabs 07/07/22 [Rx Last Taken Unknown] metronidazole 500 mg tablet 500 mg PO Q8H 7 days #21 tabs 07/07/22 [Rx Last Taken Unknown] ondansetron 4 mg disintegrating tablet 4 mg PO Q8H PRN nausea and vomiting #10 tabs 07/07/22 [Rx Last Taken Unknown] sucralfate 100 mg/mL oral suspension (Carafate) 10 ml PO TID PRN epigastric pain #400 mL 07/13/22 [Rx Last Taken Unknown] Allergy/AdvReac Type Severity Reaction Status Date / Time sulfamethoxazole AdvReac Nausea/Vom/ Verified 07/13/22 11:51 [From Bactrim] Diarrhea trimethoprim [From Bactrim] AdvReac Nausea/Vom/ Verified 07/13/22 11:51 Diarrhea Family History Mother Cancer lung- nonsmoker Brother Cancer lung- smoker Alcoholism /alcohol abuse Grandmother Heart disease Aunt Heart disease Surgical History History of ear surgery History of Mohs micrographic surgery for skin cancer Social History Smoking Status: Current some day smoker tobacco type: cigarettes Tobacco: How many years used: 30 how long ago did patient quit smoking: Patient quit smoking in 2007 but does smoke on rare occasions second hand exposure: Yes quit status: considering quitting counseling given: provider counseling alcohol intake: current details: social substance use type: does not use what type of physical activity do you participate in: walking seatbelt use: always do you feel safe at home: Yes additional social history: Trisha Madrigal Patient works at [employer] DOES TAKE ASPIRIN DOES TAKE IBUPROFEN ROS ROS ED Constitutional Constitutional ED: Denies chills or fever(s) ENT ENT ED: Reports other Details: Dry mouth ; Denies rhinorrhea or sore throat Cardiovascular Cardiovascular: Denies chest pain or palpitations Respiratory/Chest Respiratory/Chest: Denies cough or dyspnea Gastrointestinal Gastrointestinal: Reports abdominal pain, diarrhea, nausea and vomiting Genitourinary Genitourinary ED: Denies dysuria or hematuria Musculoskeletal Musculoskeletal: Denies arthralgias Integumentary Denies abscess or Abrasions Neurologic Neurologic: Denies headache(s) or paresthesias Psychiatric Psychiatric: Denies anxiety or depression EXAM Physical Exam Const Vital Signs: 07/13/22 11:51 Temperature 97.2 F L Temperature Source Temporal Pulse Rate 120 H Respiratory Rate 18 Blood Pressure 138/65 H Blood Pressure Mean 89 Pulse Ox 98 Oxygen Delivery Method Room Air Positive well nourished General Appearance ED: NAD; Negative for pallor HEENT Reports dry mucous membranes normocephalic Mouth ED: Yes dry mucous membranes Mouth: dry mucous membranes Eyes PERRL and EOMs intact bilaterally General Eye ED: Negative for pale conjunctiva or scleral icterus Resp normal respiratory effort Cardio regular rate and regular rhythm GI Palpation: tender epigastric; Negative for guarding or rigid Neuro CN's II-XII intact bilaterally Sensorium / Orientation: alert, oriented to person, oriented to place and oriented to time Motor Exam: strength 5/5 throughout Psych mental status grossly normal and thought process normal Skin no wounds General Skin Exam: Negative for jaundice or pallor MDM MDM MDM Narrative Medical decision making narrative: Patient seen and evaluated for epigastric pain. This has been ongoing since her previous visit where she was treated for colitis. She states has been on Cipro and Flagyl at home and she feels this is causing her to have diarrhea. She states my diarrhea appears to be shredded. She denies black or bloody stools. She does not have pain elsewhere in her abdomen. She does have a history of GERD and a history of colitis but is unsure if she has a history of ulcerative colitis because she has been told both she has it and she has not. She is currently on mesalamine by Dr. Castillo. She is also on omeprazole 40 mg daily. She has not been taking the Zofran she was prescribed. Patient noted to be a little tachycardic and states that her urine is dark. She is given IV fluids, Zofran and I will repeat lab work. CBC, CMP, lipase all within normal limits. Urinalysis negative for infection. She was given a GI cocktail and she feels improved after this. Patient states that she does not want take the antibiotics anymore because they are making her feel worse. I think this is reasonable given she has 2 work-ups that are ultimately normal. I do not believe she needs a repeat CAT scan. This possibly could be autoimmune in nature and she is willing to follow-up with Dr. Castillo outpatient. Patient given Carafate to help with her symptoms. She has Zofran at home and she already takes omeprazole. She is counseled to stay away from acidic foods. Return precautions were discussed. Impression: 1. Abdominal pain 2. Nausea/vomiting 3. History of colitis 4. History of GERD Lab Data Attestation: I reviewed the patient's lab results. Labs: Laboratory Results - last 24 hr 07/13/22 07/13/22 07/13/22 12:18 12:18 12:40 WBC 5.2 RBC 4.39 Hgb 13.0 Hct 39.0 MCV 88.8 MCH 29.6 MCHC 33.3 RDW Std Deviation 40.2 RDW Coeff of Victoriano 12.2 Plt Count 308 MPV 9.7 Immature Gran % (Auto) 0.400 Neut % (Auto) 68.6 Lymph % (Auto) 21.0 [place] % (Auto) 9.0 Eos % (Auto) 0.2 Baso % (Auto) 0.8 Absolute Neuts (auto) 3.6 Absolute Lymphs (auto) 1.09 Nucleated RBC % 0 Sodium 138 Potassium 3.8 Chloride 103 Carbon Dioxide 28.0 Anion Gap 7 BUN 8 Creatinine 0.86 Estim Creat Clear Calc 53.15 Est GFR (MDRD) Af Amer 87 Est GFR (MDRD) Non-Af 72 BUN/Creatinine Ratio 9.4 L Glucose 118 H Calcium 9.2 Total Bilirubin 0.30 AST 27 ALT 33 Alkaline Phosphatase 59 Total Protein 7.8 Albumin 3.6 Globulin 4.2 Albumin/Globulin Ratio 0.9 Lipase 124 Urine Color Yellow Urine Clarity Clear Urine pH 7.0 Ur Specific [place] 1.005 Urine Protein Negative Urine Glucose (UA) Normal Urine Ketones 5 H Urine Occult Blood Negative Urine Nitrite Negative Urine Bilirubin Negative Urine Urobilinogen Normal Ur Leukocyte Esterase 25 H Urine RBC 0 SEEN Urine WBC 0 SEEN Ur Squamous Epith Cells 0 SEEN Urine Bacteria 0 SEEN Urine Mucus 0 SEEN Discharge Plan Triage Chief Complaint: Abd Pain ED Provider: Kostas Zuniga Dx/Rx/DC Orders Instructions: ED GERD (Adult), ED Vomiting (Adult) Prescriptions: New sucralfate [Carafate] 100 mg/mL suspension 10 ml PO TID PRN (Reason: epigastric pain) Qty: 400 0RF No Action lorazepam 1 mg tablet 1 mg PO TID PRN (Reason: anxiety) Qty: 20 0RF lidocaine 4 % cream 1 applic topical BID PRN (Reason: pain) Qty: 30 3RF mometasone 0.1 % ointment 1 applic topical DAILY 28 Days Qty: 45 12RF Rx Instructions: use nightly x 4 weeks and then 1-2x weekly. omeprazole 40 mg capsule,delayed release(DR/EC) 40 mg PO DAILY naproxen 250 mg tablet 250 mg PO BID PRN mesalamine 1.2 GM tablet 2.4 g PO DAILY ondansetron 4 mg tablet,disintegrating 4 mg PO Q8H PRN (Reason: nausea and vomiting) Qty: 10 0RF ciprofloxacin HCl [Cipro] 500 mg tablet 500 mg PO BID Qty: 20 0RF metronidazole 500 mg tablet 500 mg PO Q8H 7 Days Qty: 21 0RF ospemifene 60 mg tablet 60 mg PO DAILY Qty: 90 0RF Primary Care Provider: Dianna Schultz Referrals: Dianna Schultz MD [Primary Care Provider] - Disposition Disposition: Home, Self Care
[2022-07-13] MEDS: 0.9% Normal Saline 1,000 ML 1000 ML IV (12:20)
[2022-07-13] MEDS: Ondansetron 4 MG/2 ML Vial IV (12:20)
[2022-07-13 12:24] LABS: Absolute Lymphocyte Count 1.09 X10^3/uL (0.83-4.51); Absolute Neutrophil Count 3.6 X10^3/uL (2.0-7.7); Basophil# 0.04 X10^3/uL; Basophil% 0.8 % (0-1); Eosinophil# 0.01 X10^3/uL; Eosinophils% 0.2 % (0-5); Lymphocyte # 1.09 X10^3/ul (0.83-4.51); Mean Corp Hgb Conc 33.3 g/dL (32-36); Mean Corpuscular Hgb 29.6 pg (27.0-32.0); Mean Corpuscular Volume 88.8 fL (81-99); Mean Platelet Vol. 9.7 fl (6.2-12.0); Monocyte# 0.47 X10^3/uL; NRBC Flagged by Analyzer 0 % (0-5); Neutrophil # 3.57 X10^3/uL (2.7-7.7); Neutrophil % 68.6 % (47-70); Platelet Count 308 K/mm3 (150-450); RBC Distribution Width CV 12.2 % (11.6-14.6); RBC Distribution Width SD 40.2 fl (35.1-43.9); Red Blood Count 4.39 M/mm3 (4.2-5.4); White Blood Count 5.2 K/mm3 (4.4-11.0)
[2022-07-13] MEDS: Mag Hydrox/Al Hydrox/Simeth 30 ML UDC PO (12:32)
[2022-07-13 12:41] LABS: ALB/GLOB Ratio 0.9 RATIO (0.9-2.4); AST(SGOT) 27 U/L (15-37); Alanine Aminotransfer ALT/SGPT 33 U/L (13-56); Albumin, Serum 3.6 g/dL (3.2-5.0); Alkaline Phosphatase 59 U/L (45-117); Anion Gap 7 (5-15); BUN 8 mg/dL (7-18); BUN/Creat Ratio 9.4 RATIO (10-20); Calcium,Total 9.2 mg/dL (8.5-10.1); Chloride 103 mmol/L (98-107); Creatinine, Serum 0.86 mg/dL (0.55-1.02); EST Glomerular Filtration Rate 72 mL/min (>60); Est Glom Filt Rate - Afr Amer 87 mL/min (>60); Estimated Creatinine Clearance 53.15 ml/min; Globulin 4.2 g/dL (2.2-4.2); Glucose 118 mg/dL (74-106); Lipase 124 U/L (73-393); Potassium 3.8 mmol/L (3.5-5.1); Protein, Total 7.8 g/dL (6.4-8.2); Sodium Level 138 mmol/L (136-145)
[2022-07-13 12:45] LABS: Bacteria 0 SEEN /hpf (None Seen); Mucous, Urine 0 SEEN /hpf (<or=2+); Red Blood Cells-Urine 0 SEEN /hpf (0-5); Squamous Epithelial Cells - UA 0 SEEN /hpf (5-10); White Blood Cells 0 SEEN /hpf (0-5)
[2022-07-13 12:47] LABS: Color, Urine Yellow (Yellow); Glucose, Dipstick Normal (Normal); Ketone-Dipstick 5 mg/dl (Negative); Leukocyte Esterase-Dipstick 25 /ul (Negative); Nitrite-Dipstick Negative (Negative); Occult Blood-Urine Negative /ul (Negative); Protein-Dipstick Negative (Negative); Specific Gravity, Urine 1.005 (1.002-1.030); Urine Bilirubin Dipstick Negative (Negative); Urine Clarity Clear (Clear); Urine Urobilinogen Normal (Normal)
[2022-07-13 14:15] VITALS: BP 130/82; PULSE 90; RESP 18; O2SAT 98
== END 2022-07-13 14:16 | disposition home or self-care (01) ==
PROVIDERS: Emergency Provider Student in an Organized Health Care Education/Training Program; PCP Internal Medicine; Visit Provider Student in an Organized Health Care Education/Training Program
DX: R10.13 Epigastric pain (principal); R11.2 Nausea with vomiting, unspecified; F17.210 Nicotine dependence, cigarettes, uncomplicated
CPT/HCPCS: 80053; 81001; 83690; 85025; 96361; 96374; 99284; J7030; A4216; J2405

== ENCOUNTER → 2022-08-16 | Outpatient (CLI) | payer OTHER, SELFPAY ==
[2022-08-20 12:44] LABS: Calprotectin, Stool 476 ug/g (0-120)
== END | disposition home or self-care (01) ==
LOC: LABSPEC 15:40
PROVIDERS: PCP Internal Medicine; Visit Provider Internal Medicine Gastroenterology
DX: K52.9 Noninfective gastroenteritis and colitis, unspecified (principal)
CPT/HCPCS: 83993

== ENCOUNTER → 2022-08-22 | Outpatient (CLI) | payer OTHER, SELFPAY ==
--- NOTE | 2022-08-22 14:48 | CT_ITS ---
STUDY: LOW DOSE CT LUNG CANCER SCREENING REASON FOR EXAM: Female, 61 years old. Lung cancer screening -- 31 pk yr hx;former smoker;asymptomatic RADIATION DOSAGE (If Supplied By Facility): CTDIvol = ( 1.59 ) mGy, DLP = ( 50.43 ) mGycm TECHNIQUE: No contrast was administered. Low dose technique was utilized (average mAS-38 and kVp 120). 1.25 mm axial source images with a slice interval of 1.25-mm were reconstructed in lung windows. 2.5 mm axial source images with a slice interval of 2.5-mm were reconstructed in lung windows. 5.0 mm axial source images with a slice interval of 5.0-mm were reconstructed in soft tissue windows. COMPARISON: Comparison is made with prior study dated 06/28/2021. NODULES: Stable calcified granuloma in the anterior medial aspect of the left upper lobe. Emphysema: Emphysematous changes. Stable scarring at the lung apices slightly more prominent on the right side. Endobronchial lesion: None Aorta: Unremarkable. CORONARY ARTERIES: Coronary artery calcification is not seen. Heart: Unremarkable Pulmonary artery: Unremarkable. Mediastinal nodes: Calcified left hilar lymph nodes as well as the aortopulmonary window. Other chest and abdominal findings: CT/Low Dose CT Lung Screening IMPRESSION: Lung-RADS category 2 - Continue annual screening with LDCT in 12 months. IMPORTANT NOTES FOR USE: ACR Lung-RADS Version 1.1 Assessment Categories Release Date: 2018 Category: Coded 0-4 bases on nodule(s) with highest degree of suspicion. Negative screen is defined as categories 1 and 2; a positive screen is defined as categories 3 and 4. Category 3 and 4A nodules that are unchanged on interval CT should be coded as category 2, and individuals returned to screening in 12 months. Category 4X: Category 3 or 4 nodules with additional imaging findings that increase the suspicion of lung cancer, such as spiculation, GGN that doubles in size in 1 year, enlarged lymph notes, etc. Category Modifiers: S (significant finding unrelated to lung cancer) Electronically Signed: Sunny Farfan MD at 15:23 EST ,
== END | disposition home or self-care (01) ==
LOC: CT 14:47
PROVIDERS: PCP Internal Medicine; Referring Provider Nurse Practitioner Family; Visit Provider Nurse Practitioner Family
DX: Z87.891 Personal history of nicotine dependence (principal); J98.4 Other disorders of lung; Q21.4 Aortopulmonary septal defect; Z12.2 Encounter for screening for malignant neoplasm of respiratory organs
CPT/HCPCS: 71271

== ENCOUNTER → 2022-11-20 | Outpatient (CLI) | payer OTHER, SELFPAY ==
--- NOTE | 2022-11-20 15:51 | BI_ITS ---
MAMMOGRAPHY - BILATERAL SCREENING REASON FOR EXAM: Female, 61 years old. Routine annual screening examination. PERTINENT HISTORY: Non-contributory. TECHNIQUE: Digital bilateral breast francisco (3D mammographic acquisition) in the CC and MLO projections. 2-D mediolateral oblique (MLO) and craniocaudad (CC) views of both breasts were obtained. CAD: Full Field Digital Mammography with Computer Added Detection was performed. COMPARISON: Comparison is made with prior study dated October 20, 2021 and August 31, 2020. FINDINGS: Breast Composition: The breasts are extremely dense, which lowers the sensitivity of mammography. There are no dominant masses or suspicious calcifications. No other significant abnormalities are identified. There has been no significant change since the prior study. BI/SCRN MAMM (CAD)W/FRANCISCO BILAT IMPRESSION: Stable bilateral screening mammogram. Yearly follow-up mammogram recommended. (A) ASSESSMENT CATEGORY: BIRADS Category 1: Negative. A letter regarding these results will be sent to the patient by the facility within 30 days. Approximately 10% of breast cancers are not detected by mammography. A normal mammogram should not delay biopsy of a clinically suspicious abnormality. [id number] Electronically Signed: Sunny Farfan MD at 8:10 EDT ,
== END | disposition home or self-care (01) ==
PROVIDERS: PCP Internal Medicine; Visit Provider Obstetrics & Gynecology
DX: Z12.31 Encounter for screening mammogram for malignant neoplasm of breast (principal)
CPT/HCPCS: 77063; 77067

== ENCOUNTER 2023-04-16 16:30 | Outpatient (RCR) | payer OTHER, SELFPAY ==
--- NOTE | 2023-03-19 17:56 | HP.PTEVAL_ITS ---
Patient's Visit Information Visit Information Visit Information: EMETERIO MEDINA is a 62 year old F referred to Physical Therapy by Dr. Galina Irvin DO with a diagnosis of SHOULDER IMPINGEMENT. Date of Evaluation: 03/19/23 Physical Therapist: Lana Stokes PT, Cert MDT Visit Plan Frequency: 1-2 Duration: 1-2 Plan: *RECENT R TRIGGER FINGER SURGERY 03/13/23* ONE FOLLOW UP VISIT FOR R ROTATOR CUFF AND SCAPULAR STRENGTH/STABILIZATION HOME EX PROGRAM PROGRESSION WITH WRITTEN HEP. OK TO SCHEULE FURTHER FOLLOW UP X 1-2 MORE VISITS IF PATIENT AGREEABLE. INCLUDE POSTURE CORRECTION/STRENGTHENING/E DUCATION RELATED TO SHLD IMPINGEMENT. Subjective Subjective: Work/Leisure: [employer] WORKING WITH DEVELOPMENTALLY DISABLED. 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 Disability: NO Present symptoms: R SHLD PAIN. DIFFICULTY LIFTING WITH R UE. RIGHT HAND DOMINANT. PATIENT DENIES IVONNE UE NUMBNESS AND TINGLING. PATIENT DENIES NECK PAIN. Present since: 2012 Pain Scale: Worst - 7/10 Least - 2/10 Currently: 2/10 - DULL ACHE Commenced as a result of: NO APPARENT REASON. Symptoms at onset: R SHLD PAIN Worse: LIFTING SOMETHING Better: NAPROXEN - PRESCRIPTION Disturbed sleep: SOMETIMES IT IS HARD TO GET TO SLEEP AND SOMETIMES CAN NOT SLEEP ON R SIDE. Previous history/Previous treatment: NAPROXEN PRESCRIBED IN 2012 AND TAKES IT NEEDED EVER SINCE. GRADUALLY FLARING UP MORE OFTEN. USE TO FLARE UP ABOUT 3 TIMES A YEAR NOW FLARES UP ABOUT EVERY MONTH. This episode: CONSULT WITH DR. IRVIN ONE TIME FOR SHLD. PT RECOMMENDED. PATIENT REPORTS DR. GONSALES SAID TO TRY EX FIRST AND MAY NEED TO TRY STEROID INJECTION. Dizziness: NO Tinnitis: NO Nausea: NO Shortness of Breath: NO Difficulty Swollowing: NO Gait: NORMAL Accidents: NO Unexplained weight loss: NO Imaging: RECENT R SHLD X-RAYS AT DR. GONSALES'S OFFICE - STATES DR. IRVIN TOLD HER THERE IS A LIGAMENT THAT OVER THE YEARS HAS BEEN GETTING WIDER. NO MRI ORDERED OR RECOMMENED AT THIS TIME PER PATIENT REPORT. PMH/Recent major surgery: R HAND TRIGGER FINGER RELEASE 03/13/23. PATIENT DENIES ANY CURRENT RESTRICTIONS FOR R HAND SURGERY. COLITIS. ACID REFLUX. OTHER: FOLLOW UP WITH DR. IRVIN PENDING FOR HAND 03/29/23 AND SHE WILL ALSO SEE HER FOR HER SHLD AT THAT TIME. Objective Objective: Sitting Posture/Standing Posture: FAIR Other Observations: INDEP GAIT AND TRANSFERS. Sensory deficit: IVONNE UE LIGHT TOUCH SENSATION GROSSLY INTACT AND SYMMETRICAL ROM deficit: IVONNE UE ROM WFL Motor deficit: IVONNE UE STRENGTH GROSSLY 5/5 WITH MMT'ING EXCEPT R SHLD ER GRADED 4/5 AND C/O MILD PAIN WITH TESTING. Cervical Mvmt Loss: Flex: NIL Pro: NIL Ext: MIN Ret: MOD RSB: MIN LSB: MOD R Rot: MOD L Rot: MIN PATIENT DENIES PAIN WITH CERICAL ROM TESTING ALL PLANES Postural strength: FAIR TREATMENT: INITIATED HEP WITH OTB MR'S, IR AND ER. START WITH 1X10 2 TIMES A DAY AND WORK UP TO 3X10 ONCE A DAY. PATIENT DEMONSTRATED AND COMMUNICATED A GOOD UNDERSTANDING OF ALL INSTRUCTIONS AFTER GIVEN AND TOLERATED THE EX'S WELL. ISS UED OTB FOR HEP. Balance/Special Test Scores Quick DASH Score: 6.8175 Goals Goal 1:: PATIENT WILL BE INDEP WITH A ROTATOR CUFF STRENGTHENING PROGRAM TO TRY TO DECREASE R SHLD PAIN AND INCREASE LIFTING FUNCTION. Goal Time Frame: 1-2 WKS Anticipated Interventions Patient/Client Instruction: Educate patient on: Condition, Plan of Care and Risk Factors For the Purpose of:: To improve self management Therapeutic Exercise to Include: Strength training, Postural training and Scapular Strength/Stabilization For the Purpose of:: To decrease pain, To improve muscle performance and motor function and To improve ability of physical actions for home/community/work/leisure Text: Thank you for the opportunity to evaluate your patient. For Medicare and Medicare HMO plans, please review the plan of care and approve it. It will need to be FAXED BACK to us at [phone] for Medicare purposes. For Medicare only, by signing this I certify the plan of care. Please let me know if there are questions or concerns regarding this plan of care. Physician Signature: Date:
--- NOTE | 2023-04-16 17:15 | HP.PTDCSUM ---
Discharge Summary D/C summary: It has been my pleasure to treat EMETERIO MEDINA referred by Dr. Galina Osorio DO, with the diagnosis of SHOULDER IMPINGEMENT for a total of 3 visit(s). Discharge Date: Please see the following information for a summary of their discharge status. Subjective Subjective: PATIENT REPORTS BEING ABLE TO DO HER HEP OFF AND ON. HAD STREP THROAT. STATES SHE DID HER SHLD HEP X THE LAST 2 DAYS WITHOUT INCREASED SHLD PAIN. STATES SHE ACCIDENTLY BENT HER FINGER BACKWARDS ON A DOOR SUNDAY AND REALLY HURT HER FINGER BUT ICE HELPED. DENIES INCREASED FINGER PAIN WITH HER SHLD EX'S. PATIENT REPORTS HER SHLD STILL WORKS WITH CERTAIN WORK ACTIVITIES AND SOMETIMES SLEEPING. Objective Objective/Function: PT GOAL MET Goals Goal 1:: PATIENT WILL BE INDEP WITH A ROTATOR CUFF STRENGTHENING PROGRAM TO TRY TO DECREASE R SHLD PAIN AND INCREASE LIFTING FUNCTION. Goal Progress: Goal Met Plan Plan: D/C TO INDEP EX. AND FOLLOW UP WITH DR. OSORIO. PATIENT AGREEABLE. D/C Information d/c sentence: If there are questions or concerns regarding this patient's physical therapy, please feel free to call me at [phone]. Thank you for the referral of this patient. Sincerely, Lana Stokes, PT, Cert MDT Balance/Gait/Functional tests Balance/Special Test Scores Quick DASH Score: 6.8175
== END 2023-04-16 19:00 | disposition home or self-care (01) ==
LOC: PT 16:30
PROVIDERS: PCP Internal Medicine; Referring Provider Orthopaedic Surgery; Visit Provider Orthopaedic Surgery
DX: M25.819 Other specified joint disorders, unspecified shoulder (principal)
CPT/HCPCS: 97110; 97161; 97530

== ENCOUNTER → 2023-09-11 | Outpatient (CLI) | payer OTHER, SELFPAY ==
--- NOTE | 2023-09-11 15:10 | CT_ITS ---
STUDY: LOW DOSE CT LUNG CANCER SCREENING REASON FOR EXAM: Female, 62 years old. Lung cancer screening -- and gt;20 pk yr hx;current smoker;asymptomatic RADIATION DOSAGE (If Supplied By Facility): CTDIvol = ( 2.01 ) mGy, DLP = ( 67.20 ) mGycm TECHNIQUE: No contrast was administered. Low dose technique was utilized (average mAS-38 and kVp 120). 1.25 mm axial source images with a slice interval of 1.25-mm were reconstructed in lung windows. 2.5 mm axial source images with a slice interval of 2.5-mm were reconstructed in lung windows. 5.0 mm axial source images with a slice interval of 5.0-mm were reconstructed in soft tissue windows. COMPARISON: Comparison is made with prior study dated August 22, 2022. NODULES: Stable calcified granuloma in the anterior medial aspect of the left upper lobe. Emphysema: Emphysematous changes. Stable scarring at the lung apices. This is worse on the right side. Endobronchial lesion: None Aorta: Unremarkable CORONARY ARTERIES: Coronary artery calcification is not seen. Heart: Unremarkable Pulmonary artery: Unremarkable Mediastinal nodes: Calcified left hilar lymph nodes and lymph nodes in the aortopulmonary window. Other chest and abdominal findings: CT/Low Dose CT Lung Screening IMPRESSION: Lung-RADS category 2 - Continue annual screening with LDCT in 12 months. IMPORTANT NOTES FOR USE: ACR Lung-RADS Version 1.1 Assessment Categories Release Date: 2018 Category: Coded 0-4 bases on nodule(s) with highest degree of suspicion. Negative screen is defined as categories 1 and 2; a positive screen is defined as categories 3 and 4. Category 3 and 4A nodules that are unchanged on interval CT should be coded as category 2, and individuals returned to screening in 12 months. Category 4X: Category 3 or 4 nodules with additional imaging findings that increase the suspicion of lung cancer, such as spiculation, GGN that doubles in size in 1 year, enlarged lymph notes, etc. Category Modifiers: S (significant finding unrelated to lung cancer) Electronically Signed: Sunny Farfan MD at 15:37 EST ,
== END | disposition home or self-care (01) ==
LOC: CT 15:10
PROVIDERS: PCP Internal Medicine; Referring Provider Nurse Practitioner Family; Visit Provider Nurse Practitioner Family
DX: Z87.891 Personal history of nicotine dependence (principal)
CPT/HCPCS: 71271

== ENCOUNTER → 2024-02-08 | Outpatient (CLI) | payer OTHER, SELFPAY ==
--- NOTE | 2024-02-07 16:14 | BI_ITS ---
MAMMOGRAPHY - BILATERAL SCREENING REASON FOR EXAM: Female, 63 years old. Routine annual screening examination. PERTINENT HISTORY: Non-contributory. TECHNIQUE: Digital bilateral breast francisco (3D mammographic acquisition) in the CC and MLO projections. 2-D mediolateral oblique (MLO) and craniocaudad (CC) views of both breasts were obtained. CAD: Full Field Digital Mammography with Computer Added Detection was performed. COMPARISON: Comparison is made with prior examination November 20, 2022 and October 20, 2021. FINDINGS: Breast Composition: The breasts are extremely dense, which lowers the sensitivity of mammography. There are no dominant masses or suspicious calcifications. Stable fat-containing bilateral axillary lymph nodes. No other significant abnormalities are identified. There has been no significant change since the prior study. BI/SCRN MAMM (CAD)W/FRANCISCO BILAT IMPRESSION: Stable bilateral screening mammogram. Yearly follow-up mammogram recommended. (A) ASSESSMENT CATEGORY: BIRADS Category 2: Benign. A letter regarding these results will be sent to the patient by the facility within 30 days. Approximately 10% of breast cancers are not detected by mammography. A normal mammogram should not delay biopsy of a clinically suspicious abnormality. [id number] Electronically Signed: Sunny Farfan MD at 8:21 EDT ,
== END | disposition home or self-care (01) ==
LOC: OPBI 07:04
PROVIDERS: PCP Internal Medicine; Referring Provider Obstetrics & Gynecology; Visit Provider Obstetrics & Gynecology
DX: Z12.31 Encounter for screening mammogram for malignant neoplasm of breast (principal)
CPT/HCPCS: 77063; 77067

== ENCOUNTER → 2024-06-04 | Outpatient (CLI) | payer OTHER, SELFPAY ==
[2024-06-04 17:42] LABS: Hematocrit 34.8 % (37-47); Hemoglobin 11.5 g/dL (12.0-15.0); Mean Corpuscular Hgb 30.6 pg (27.0-32.0); Mean Corpuscular Volume 92.6 fL (81-99); Mean Platelet Vol. 10.4 fl (6.2-12.0); Platelet Count 257 K/mm3 (150-450); RBC Distribution Width CV 12.5 % (11.6-14.6); RBC Distribution Width SD 42.8 fl (35.1-43.9); Red Blood Count 3.76 M/mm3 (4.2-5.4); White Blood Count 4.6 K/mm3 (4.4-11.0)
[2024-06-04 17:54] LABS: Erythrocyte Sedimentation Rate 10 mm/hr (0-30)
[2024-06-04 18:18] LABS: ALB/GLOB Ratio 0.9 RATIO (0.9-2.4); AST(SGOT) 18 U/L (15-37); Alanine Aminotransfer ALT/SGPT 14 U/L (13-56); Albumin, Serum 3.6 g/dL (3.2-5.0); Alkaline Phosphatase 69 U/L (45-117); Anion Gap 5 (5-15); BUN 12 mg/dL (7-18); BUN/Creat Ratio 13.6 RATIO (10-20); CRP 4.31 mg/L (0.0-3.0); Calcium,Total 9.2 mg/dL (8.5-10.1); Chloride 106 mmol/L (98-107); Creatinine, Serum 0.88 mg/dL (0.55-1.02); EST Glomerular Filtration Rate 69 mL/min (>60); Est Glom Filt Rate - Afr Amer 84 mL/min (>60); Globulin 3.9 g/dL (2.2-4.2); Glucose 96 mg/dL (74-106); Iron 60 ug/dL (50-170); Potassium 3.8 mmol/L (3.5-5.1); Protein, Total 7.5 g/dL (6.4-8.2); Sodium Level 139 mmol/L (136-145)
== END | disposition home or self-care (01) ==
LOC: MTLAB 17:02
PROVIDERS: PCP Internal Medicine; Referring Provider Internal Medicine Gastroenterology; Visit Provider Internal Medicine Gastroenterology
DX: K51.90 Ulcerative colitis, unspecified, without complications (principal)
CPT/HCPCS: 36415; 80053; 83540; 85027; 85652; 86140

== ENCOUNTER → 2024-09-16 | Outpatient (CLI) | payer OTHER, SELFPAY ==
--- NOTE | 2024-09-16 14:40 | CT_ITS ---
PROCEDURE: LOW DOSE CT LUNG SCREENING TECHNIQUE: Low Dose CT Lung Screening without contrast COMPARISON: Comparison is made with prior study dated September 11, 2023. FINDINGS: PULMONARY NODULES: (Only nodules >6mm are reported) Nodules described below are on series unless otherwise specified. Pulmonary Nodules: No concerning pulmonary nodules. Stable calcific granuloma in the anterior medial aspect of the left upper lobe. Hardware:None Lymph Nodes:Calcified left hilar lymph nodes as well as lymph nodes in the aortopulmonary window. Heart and Vasculature:Normal heart size. No pericardial effusion.Thoracic aorta and pulmonary arterie s have normal contours; noncontrast technique limits evaluation. Coronary Artery Calcifications: Present Lungs and Airways: Mild emphysematous changes are present. Pleura:No pleural effusion. No pneumothorax. Upper Abdomen:Visualized portions of the upper abdominal viscera are unremarkable. Bones:Bone windows are unremarkable. CT/Low Dose CT Lung Screening IMPRESSION: 1. BASED ON THE ACR LUNG RADS FOR THE MOST SUSPICIOUS NODULE (IF ANY) DESCRIBE D IN THIS REPORT, THE OVERALL LUNG RADS SCORE IS 1. 1 - NEGATIVE. RECOMMEND 12-MONTH SCREENING LDCT.. 2. SMOKING CESSATION COUNSELING IS RECOMMENDED IF THE PATIENT IS STILL SMOKING . 3. OTHER SIGNIFICANT FINDINGSNone. One or more dose reduction techniques were used (e.g., Automated exposure contr ol, adjustment of the mA and/or kV according to patient size, use of iterative reconstruction technique). The following information is provided for reference:Lung-RADS 2021 Assessment C ategories. Additional information involving Lung-RADS is available at www.acr.org. 0-INCOMPLETE 1-NEGATIVE:No nodules or definitely benign nodules. Complete, central, popcorn , or centric ring calcifications OR fat containing 2-BENIGN APPEARANCE (based on imaging features or indolent behavior). Juxtaple ural nodule: < 10mm AND solid; smooth margins; oval, entiform, or triangular shape Solid nodule: <6mm at baseline or new< 4mm Part solid Nodule: < 6mm total mean diameter at baseline Nonsolid nodule:(GGN) < 30mm OR >=30mm stable or slowly growing Airway nodule, subsegmental at baseline, new, or stable Category 3 nodule stabl e or decreased in size at 6-month follow-up CT or Category 3 or 4A nodules that resolve on follow-up OR category 4B findings prov en to be benign following diagnotic work up. 3 - Probably Benign (Based on imaging features or behavior) Solid Nodule: >= 6 to <8mm at baseline OR new 4 to <6mm Part-solid nodule: >= 6mm toal mean diam. with solid component <6mm at baseline OR new < 6mm total mean diam. Non-solid nodule: GGN >= 30mm at baseline or new Atypical pulmonary cyst: Growing cystic component (mean diam.) of thick-walled cyst Category 4A nodule stable or decreased in size at 3-month follow-up CT (excl.ai rway). 4A - Suspicious Solid nodule: >=8 to < 15mm at baseline OR growing < 8mm OR new 6 to < 8mm Part solid nodule: >= 6mm total mean diam. w/ solid component >=6mm to < 8mm at baseline OR new or growing < 4mm solid component Airway nodule, segmental or more proximal at baseline or new Atypical pulmonary cyst: Thick-walled OR multilocular at baseline OR becomes mu ltilocular 4B - Very Suspicious Airway nodule, segmental or more proximal, and stable or growing Solid nodule: >= 15mm at baseline OR new or growing >= 8mm Part solid nodule: Solid component >= 8mm OR new or growing >= 4mm solid compon ent Atypical pulmonary cyst: Thick-walled with growing wall thickness/nodularity OR Growing multilocular (mean diam.) OR Multilocular with increased loculation or new/increased opacity Slow-growing solid or part solid nodule w/ growth over multiple screening exams 4X - Very Suspicious Category 3 or 4 nodules with additional features that increase the suspicion fo r lung cancer. S - Clinically Significant or potentially significant findings (non-lung cancer ) Reading Location: [place] [id number]
== END | disposition home or self-care (01) ==
PROVIDERS: PCP Internal Medicine; Referring Provider Nurse Practitioner Family; Visit Provider Nurse Practitioner Family
DX: Z12.2 Encounter for screening for malignant neoplasm of respiratory organs (principal); Z87.891 Personal history of nicotine dependence
CPT/HCPCS: 71271

== ENCOUNTER → 2025-02-09 | Outpatient (CLI) | payer OTHER, SELFPAY ==
--- NOTE | 2025-02-09 16:07 | BI_ITS ---
EXAM: SCRN MAMM (CAD)W/FRANCISCO BILAT DATE: 02/09/2025 CLINICAL HISTORY: F, Age 64 y/o , SCREENING MAMMOGRAM FOR BREAST CANCER BREAST CANCER RISK ASSESSMENT: Not assessed. TECHNIQUE: SCRN MAMM (CAD)W/FRANCISCO BILAT COMPARISON: Prior exam(s) dated February 07, 2024.. FINDINGS: TISSUE DENSITY: The breast tissue is extremely dense which lowers the sensitivity of mammography. Bilateral Breast Mammographic Findings: No significant masses, calcifications or other abnormalities are identified. No suspicious masses, areas of developing architectural distortion, or suspicious calcifications. There has been no significant interval change. BI/SCRN MAMM (CAD)W/FRANCISCO BILAT IMPRESSION: Stable examination. OVERALL FINAL ASSESSMENT BI-RADS 1: NEGATIVE. RECOMMEND ANNUAL MAMMOGRAPHIC SCREENING. RECOMMENDATION: Routine annual follow-up in 1 Year A letter with findings and recommendations will be mailed to the patient. Reading Location: [place]
== END | disposition home or self-care (01) ==
LOC: OPBI 16:06
PROVIDERS: PCP Internal Medicine; Referring Provider Obstetrics & Gynecology; Visit Provider Obstetrics & Gynecology
DX: Z12.31 Encounter for screening mammogram for malignant neoplasm of breast (principal)
CPT/HCPCS: 77063; 77067

== ENCOUNTER → 2025-06-27 | Outpatient (CLI) | payer OTHER, SELFPAY ==
[2025-06-27 12:15] LABS: Hematocrit 38.1 % (37-47); Hemoglobin 12.8 g/dL (12.0-15.0); Immature Granulocytes Count 0.000 X10^3/uL (0.0-0.0); Mean Corp Hgb Conc 33.6 g/dL (32-36); Mean Corpuscular Volume 90.1 fL (81-99); Mean Platelet Vol. 9.9 fl (6.2-12.0); NRBC Flagged by Analyzer 0 % (0-5); Platelet Count 262 K/mm3 (150-450); RBC Distribution Width CV 12.3 % (11.6-14.6); RBC Distribution Width SD 40.5 fl (35.1-43.9); Red Blood Count 4.23 M/mm3 (4.2-5.4); White Blood Count 2.8 K/mm3 (4.4-11.0)
[2025-06-27 12:38] LABS: Cholesterol 235 mg/dL (<=200); Low Density Lipoprotein Calc. 144 mg/dL; Triglycerides 78 mg/dL; Very Low Density Lipoprotein 16 mg/dL (5-40); Vitamin D,25 Hydroxy 22.3 ng/mL (30-100); cholesterol:hdl ratio screen 3.02
[2025-06-27 12:49] LABS: AST(SGOT) 21 U/L (<=31); Alanine Aminotransfer ALT/SGPT 9 U/L (<=34); Albumin, Serum 4.2 g/dL (3.4-4.8); Alkaline Phosphatase 73 U/L (35-104); Anion Gap 9 (5-15); BUN 10 mg/dL (4-19); BUN/Creat Ratio 11.5 RATIO (10-20); Calcium,Total 9.2 mg/dL (7.6-11.0); Carbon Dioxide 26.1 mmol/L (21.0-32.0); Chloride 104 mmol/L (98-108); Globulin 3.4 g/dL (2.2-4.2); Glucose 111 mg/dL (70-99); Potassium 3.8 mmol/L (3.3-5.1)
== END | disposition home or self-care (01) ==
LOC: LAB 11:37
PROVIDERS: PCP Internal Medicine; Referring Provider Obstetrics & Gynecology; Visit Provider Obstetrics & Gynecology
DX: Z00.00 Encounter for general adult medical examination without abnormal findings (principal); Z13.29 Encounter for screening for other suspected endocrine disorder; E78.5 Hyperlipidemia, unspecified
CPT/HCPCS: 36415; 80053; 80061; 82306; 83036; 84443; 85025